=== PATIENT | female | born 1990 | race Two or more races ===

== ENCOUNTER 2016-05-20 11:22 | Emergency (ER) | payer OTHER ==
[~2016-05-20] VITALS: Ht 152.4 cm; Wt 79.3 kg
[~2016-05-20 11:22] MED LIST: ALPRAZOLAM ER1 MG; ATARAX,VISTARIL25 MG PO; BACTRIM,SEPT1 TABLET PO; CHROMAGEN,1 CAPSULE PO; ENDOCET 5-3251 EACH PO; FIORICET WI1 CAPSULE PO; FLAGYL500 MG PO; IBUPROFEN800 MG PO; LEXAPRO10 MG PO; LEXAPRO20 MG PO; MOTRIN800 MG PO; NAPROSYN500 MG PO; PROMETHAZINE HC25 M1 PO; TRAMADOL HCL50 MG PO; VYVANSE20 MG; VYVANSE20 MG PO; VYVANSE30 MG PO; VYVANSE40 MG PO; XANAX1 MG PO; ZITHROMAX Z-PA250 MG PO
[2016-05-20 13:36] VITALS: BP 135/85
== END 2016-05-20 13:37 | disposition home or self-care (01) ==
LOC: RME 11:22 → EME 11:22 → RME 13:37
DX: R19.7 Diarrhea, unspecified (principal); R10.9 Unspecified abdominal pain; F17.200 Nicotine dependence, unspecified, uncomplicated
CPT/HCPCS: 99281; 99283

== ENCOUNTER 2017-01-09 20:09 | Inpatient (IN) | payer OTHER ==
[~2017-01-09] VITALS: Ht 152.4 cm; Wt 85.1 kg
[2017-01-10 00:02] VITALS: BP 119/64
[2017-01-10 07:41] VITALS: BP 119/75
[2017-01-10] MEDS ORDERED: RISPERDAL0.25 MG PO (09:22)
[2017-01-10] MEDS ORDERED: XANAX0.5 MG PO (09:22)
[2017-01-10 15:59] VITALS: BP 146/88
[2017-01-11 07:44] VITALS: BP 124/75
[2017-01-11 15:32] VITALS: BP 148/99
[2017-01-12 07:39] VITALS: BP 116/56
[2017-01-12] MEDS ORDERED: MINIPRESS2 MG PO (09:07)
[2017-01-12] MEDS ORDERED: PAROXETINE HCL20 MG PO (09:08)
[2017-01-12] MEDS ORDERED: INDERAL20 MG PO (09:08)
[2017-01-12] MEDS ORDERED: RISPERIDONE1 MG PO (09:08)
== END 2017-01-12 16:29 | disposition home or self-care (01) | DRG 885 ==
LOC: EME 20:09 → 1WEST 21:56 → EDOF 21:56 → 1WEST 23:38 → ENRESERV 23:38 → 1WEST 01-12 16:29
DX: F33.2 Major depressive disorder, recurrent severe without psychotic features (principal); R45.851 Suicidal ideations; J45.909 Unspecified asthma, uncomplicated; F90.9 Attention-deficit hyperactivity disorder, unspecified type; F40.10 Social phobia, unspecified; F41.9 Anxiety disorder, unspecified; F17.200 Nicotine dependence, unspecified, uncomplicated; F43.12 Post-traumatic stress disorder, chronic; F12.90 Cannabis use, unspecified, uncomplicated; F60.89 Other specific personality disorders; E66.01 Morbid (severe) obesity due to excess calories; Z68.36 Body mass index [BMI] 36.0-36.9, adult
CPT/HCPCS: 90839; 97150 GO; 97165 GO; 99281; 99285

== ENCOUNTER → 2017-02-14 | Outpatient (CLI) | payer OTHER ==
[~2017-02-14] MED LIST changes: +INDERAL20 MG PO; +MINIPRESS2 MG PO; +PAROXETINE HCL20 MG PO; +RISPERDAL0.25 MG PO; +RISPERIDONE1 MG PO; +XANAX0.5 MG PO
== END | disposition home or self-care (01) ==
LOC: CDC 09:11
DX: M25.532 Pain in left wrist (principal); M67.432 Ganglion, left wrist; R20.2 Paresthesia of skin
CPT/HCPCS: 93000